=== PATIENT | male | born 1985 ===

== ENCOUNTER 2017-01-25 20:19 | Emergency (ER) | payer OTHER, SELFPAY ==
[2017-01-25 20:32] VITALS: BP 141/92; PULSE 79; RESP 16; TEMP 98; O2SAT 100
--- NOTE | 2017-01-25 20:55 | ED PDOC ---
Lower Extremity Pain/Injury Time Seen by Provider: 01/25/17 20:37 Chief Complaint (Nursing): Lower Extremity Problem/Injury Chief Complaint (Provider): Lower Extremity Problem/Injury History Per: Patient History/Exam Limitations: no limitations Onset/Duration Of Symptoms: Days (x3 years), Persistent Current Symptoms Are (Timing): Still Present Additional Complaint(s): Rush Moon is a 31 year old male who presents to the emergency department with a complaint of persistent left-sided groin pain exasperated with movement radiating to left leg ongoing for 3 years. Denied any injury, trauma, dysuria or hematuria. Patient stated today is the first time he has been evaluated for this pain and usually takes Tylenol for pain relief. PMD: none provided Past Medical History Reviewed: Historical Data, Nursing Documentation, Vital Signs Vital Signs: Last Vital Signs Temp 98 F 01/25/17 20:30 Pulse 79 01/25/17 20:30 Resp 16 01/25/17 20:30 BP 141/92 H 01/25/17 20:30 Pulse Ox 100 01/25/17 20:30 - Medical History PMH: No Chronic Diseases - Surgical History Surgical History: No Surg Hx - Family History Family History: States: Unknown Family Hx - Social History Current smoker - smoking cessation education provided: No Alcohol: None Drugs: Denies - Immunization History Hx Tetanus Toxoid Vaccination: No Hx Influenza Vaccination: No Hx Pneumococcal Vaccination: No - Home Medications Home Medications: Ambulatory Orders Medication Instructions Recorded Ibuprofen [Motrin] 600 mg PO Q6H PRN #20 tab 02/15/15 Lidocaine Hydrochloride [Lidocaine 5 ml MM Q6 PRN #200 ml 02/15/15 HCl Viscous 100 ml] Ibuprofen [Motrin] 600 mg PO Q6 #20 tab 01/25/17 - Allergies Allergies/Adverse Reactions: Allergies Allergy/AdvReac Type Severity Reaction Status Date / Time No Known Allergies Allergy Verified 02/15/15 18:55 Review of Systems ROS Statement: Except As Marked, All Systems Reviewed And Found Negative Genitourinary Male: Positive for: Other (left groin pain). Negative for: Dysuria, Hematuria Musculoskeletal: Positive for: Leg Pain (left) Physical Exam - Reviewed Nursing Documentation Reviewed: Yes Vital Signs Reviewed: Yes - Physical Exam Appears: Positive for: Well, Non-toxic, No Acute Distress Head Exam: Positive for: ATRAUMATIC, NORMAL INSPECTION, NORMOCEPHALIC Cardiovascular/Chest: Positive for: Regular Rate, Rhythm. Negative for: Chest Non Tender Respiratory: Positive for: Normal Breath Sounds, Accessory Muscle Use. Negative for: Decreased Breath Sounds, Respiratory Distress Extremity: Positive for: Normal ROM, Tenderness (mid-femoral shaft). Negative for: Deformity, Swelling (mass, erythema or ecchymosis) Neurologic/Psych: Positive for: Alert, Oriented, Gait (steady) - ECG O2 Sat by Pulse Oximetry: 100 (RA) Pulse Ox Interpretation: Normal Medical Decision Making Medical Decision Making: Initial Impression:leg pain Initial Plan: Femur XR: NAD, as read by EDMOND Medicated with Motrin PO doing well on re-eval, no complaints of pain Scribe Attestation: Documented by Teresa Sabillon, acting as a scribe for Emily Frances. Provider Scribe Attestation: All medical record entries made by the Scribe were at my direction and personally dictated by me. I have reviewed the chart and agree that the record accurately reflects my personal performance of the history, physical exam, medical decision making, and the department course for this patient. I have also personally directed, reviewed, and agree with the discharge instructions and disposition. Disposition - Clinical Impression Clinical Impression: Leg pain - Patient ED Disposition Is Patient to be Admitted: No - Disposition Disposition: Routine/Home Disposition Time: 22:00 Condition: STABLE Prescriptions: Ibuprofen [Motrin] 600 mg PO Q6 #20 tab Instructions: Leg Pain (ED) Forms: [employer] (Nepalese)
--- NOTE | 2017-01-26 15:12 | RAD ---
PROCEDURE: Left femur HISTORY: Pain. No history of recent/ related trauma provided COMPARISON: None TECHNIQUE: Standard protocol for this study/examination. FINDINGS: No significant/acute osseous, articular or soft tissue abnormalities. IMPRESSION: No significant or acute findings to account for/ related to the clinical presentation. Please note: No preliminary report/ innterpretation of this examination provided by emergency department personnel.
== END 2017-01-25 23:06 | disposition home or self-care (01) ==
LOC: H.ER 20:19
DX: M79.605 Pain in left leg (principal)

== ENCOUNTER 2017-09-22 20:10 | Emergency (ER) | payer SELFPAY ==
[2017-09-22 20:26] VITALS: BP 132/76; PULSE 71; RESP 16; TEMP 98; O2SAT 99
[2017-09-22] MEDS ORDERED: PROPARACAINE/FLUORESCEIN SOD 100 DROP/5 ML BOTTLE OS STA (20:39)
--- NOTE | 2017-09-22 20:49 | ED PDOC ---
HPI: Eye Injury/Pain Time Seen by Provider: 09/22/17 20:37 Chief Complaint (Nursing): Eye Problem Chief Complaint (Provider): Right eye pain History Per: Patient History/Exam Limitations: no limitations Onset/Duration Of Symptoms: Days (x1 week) Current Symptoms Are (Timing): Still Present Wears Contact Lens?: No Associated Symptoms: Discharge From Eye (clear). denies: Decreased Vision Additional Complaint(s): Rush Borrego is a 32 year old male, with no significant past medical history, who presents to the emergency department complaining of right eye pain onset for x1 week. Patient reports a clear discharge from the eye. Patient states he felt like a foreign object flew into his eye and scratched it. He doesn't wear contacts and denies any vision changes. No further medical complaints. PMD: None provided. Past Medical History Reviewed: Historical Data, Nursing Documentation, Vital Signs Vital Signs: Last Vital Signs Temp 98.0 F 09/22/17 20:23 Pulse 71 09/22/17 20:23 Resp 16 09/22/17 20:23 BP 132/76 09/22/17 20:23 Pulse Ox 99 09/22/17 20:23 - Medical History PMH: No Chronic Diseases - Surgical History Surgical History: No Surg Hx - Family History Family History: States: Unknown Family Hx - Social History Current smoker - smoking cessation education provided: No Alcohol: None Drugs: Denies - Immunization History Hx Tetanus Toxoid Vaccination: No Hx Influenza Vaccination: No Hx Pneumococcal Vaccination: No - Home Medications Home Medications: Ambulatory Orders Medication Instructions Recorded Ibuprofen [Motrin] 600 mg PO Q6H PRN #20 tab 02/15/15 Lidocaine Hydrochloride [Lidocaine 5 ml MM Q6 PRN #200 ml 02/15/15 HCl Viscous 100 ml] Ibuprofen [Motrin] 600 mg PO Q6 #20 tab 01/25/17 - Allergies Allergies/Adverse Reactions: Allergies Allergy/AdvReac Type Severity Reaction Status Date / Time No Known Allergies Allergy Verified 02/15/15 18:55 Review of Systems ROS Statement: Except As Marked, All Systems Reviewed And Found Negative Eyes: Positive for: Pain (right). Negative for: Vision Change Physical Exam - Reviewed Nursing Documentation Reviewed: Yes Vital Signs Reviewed: Yes - Physical Exam Appears: Positive for: Non-toxic Head Exam: Positive for: ATRAUMATIC, NORMOCEPHALIC Skin: Positive for: Normal Color, Warm, Dry Eye Exam: Positive for: EOMI, PERRL, Conjunctival injection (mild sclera). Negative for: Other (No corneal abrasion. Inverted eyelid clear) Neck: Positive for: Painless ROM Respiratory: Negative for: Respiratory Distress Extremity: Positive for: Normal ROM (upper and lower extremities). Negative for : Deformity, Swelling Neurologic/Psych: Positive for: Alert, Oriented. Negative for: Motor/Sensory Deficits - ECG O2 Sat by Pulse Oximetry: 99 (RA) Pulse Ox Interpretation: Normal Medical Decision Making Medical Decision Making: Time: 20:37 Initial Impression: Eye pain Initial Plan: --Flucaine Eye Drops 2 drops OS Scribe Attestation: Documented by Renaldo Petty, acting as a scribe for Mariluz Stern PA-C Provider Scribe Attestation: All medical record entries made by the Scribe were at my direction and personally dictated by me. I have reviewed the chart and agree that the record accurately reflects my personal performance of the history, physical exam, medical decision making, and the department course for this patient. I have also personally directed, reviewed, and agree with the discharge instructions and disposition. Disposition - Disposition Forms: [email or web address] (Mongolian)
== END 2017-09-22 21:25 | disposition home or self-care (01) ==
LOC: H.ER 20:10
DX: H57.11 Ocular pain, right eye (principal)